=== PATIENT | female | born 1950 | race Caucasian/White ===

== ENCOUNTER → 2019-01-04 | Outpatient (CLI) | payer BC, MEDICARE ==
[2019-01-04 13:29] VITALS: BP 128/83; PULSE 61; RESP 16; TEMP 98.2; BMI 24.2
--- NOTE | 2019-01-04 14:35 | P.HPOB ---
History of Present Illness H&P Date: 01/04/19 Chief Complaint: The patient is here for her routine gynecologic exam. This is a 68-year-old with an LMP of 1978. She is status post vaginal hysterectomy with BSO for benign reasons. The patient is here to establish with this office. She states she has been on in ERT patch for many years. Recently she has experienced some breast soreness with slight engorgement. She denies leakage from the breasts. She thinks she started having this breast soreness around the time she changed to a generic form of the Vivelle dot patch. She is otherwise without gynecologic complaints. She has been experiencing less energy and feels tired. She states she does not have a primary care physician at this time. Review of Systems She believes she has gained about 10 pounds over the past 2 months. She denies respiratory, cardiac and G.I. problems. She denies maltreatment or problems with falling. : she denies any significant problems with urinary leakage. Past Medical History Past Medical History: Hyperlipidemia Additional Past Medical History / Comment(s): She was born with one kidney. 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 Hysterectomy was for endometriosis and abnormal bleeding. History of Any Multi-Drug Resistant Organisms: None Reported Past Surgical History: Appendectomy, Hysterectomy, Orthopedic Surgery, Tonsillectomy Additional Past Surgical History / Comment(s): Vaginal hysterectomy with BSO in 1978. Shoulder, knee, and wrist surgeries. Colonoscopy 2014(4th, next after 5 yrs) Past Psychological History: No Psychological Hx Reported Smoking Status: Never smoker Past Alcohol Use History: Occasional (3 per month) Past Drug Use History: None Reported Additional History: She has been since December 2018 and this is her second marriage. She frequently plays soccer. - Past Family History Father Family Medical History: Myocardial Infarction ([place]) Mother Additional Family Medical History / Comment(s): Trauma related . Medications and Allergies Home Medications Medication Instructions Recorded Confirmed Type Estradiol [Vivelle-Dot 0.1 MG] 1 patch TRANSDERM Q84H 01/04/19 01/04/19 History Allergies Allergy/AdvReac Type Severity Reaction Status Date / Time No Known Allergies Allergy Unverified 01/04/19 13:29 Exam Vital Signs Temp Pulse Resp BP Pulse Ox 01/04/19 13:16 98.2 F 61 16 128/83 96 Intake and Output 01/03/19 01/04/19 01/04/19 22:59 06:59 14:59 Other: Weight 54.431 kg Height 4 feet 11 inches, weight 120 pounds, BMI 24.2. This is a well-developed well-nourished white female who is alert and oriented times 3 in no acute distress. HEENT: Within normal limits. NECK: Supple without mass or thyromegaly. CHEST AND LUNGS: Clear to auscultation. HEART: Regular rate and rhythm. BREASTS: Are without mass or discharge. AXILLARY EXAM: Negative for adenopathy. BACK: Negative for CVA tenderness. ABDOMEN: Soft, nontender, without palpable masses. PELVIC EXAM: External genitalia appears normal with mild atrophy. Vagina appears normal mild atrophy. There is no evidence of prolapse. Bimanual examination is negative for mass or tenderness. RECTAL EXAM: Rectovaginal exam is negative for mass or tenderness and is negative for occult blood. EXTREMITIES: Nontender. IMPRESSION: 1. 68-year-old menopausal female status post vaginal hysterectomy with BSO for benign reasons with normal gynecologic exam. 2. Long-term use of ERT in the form of estrogen patches. PLAN: 1. Pap smears have been discontinued. 2. Self breast awareness was discussed with the patient. 3. The patient had an abnormal mammogram which required bilateral diagnostic mammogram on 05/03/2018. This was done in [place]. 6 month bilateral diagnostic mammogram was recommended. The order slip was given to the patient for this. 4. Osteoporosis prevention was discussed. I have stressed the importance of adequate calcium, vitamin D and regular exercise. Recommended amounts of calcium and vitamin D were also discussed. She states she had a normal bone density test done in April 2018 in [place]. I have her requested that she try to get me a copy of this report. 5. We have had a long discussion regarding ERT. We have discussed the possible risk of blood clots and stroke. I have recommended that she gradually wean off of ERT. I will reduce her estrogen patch dose to Vivelle-Dot 0.0375 changed twice weekly. I recommended she wean off of this completely, if possible. She states she will do this. The prescription will be sent to [facility] electronically. 6. She does get flu shots in the fall and did receive one recently. 7. The patient was advised to return in 1-2 years for her well woman examination.
== END | disposition home or self-care (01) ==
LOC: WWCWWP 12:48
PROVIDERS: ATTEND Obstetrics & Gynecology
DX: Z53.9 Procedure and treatment not carried out, unspecified reason (principal)

== ENCOUNTER → 2019-01-05 | Outpatient (CLI) | payer MEDICARE ==
[2019-01-05 07:27] LABS: HGB 13.1 gm/dL (11.4-16.0); MCH 30.9 pg (25.0-35.0); MCV 96.7 fL (80.0-100.0); Mean Platelet Volume 6.5; Platelet Count 320 k/uL (150-450); RBC 4.24 m/uL (3.80-5.40); RDW 12.5 % (11.5-15.5); WBC 4.3 k/uL (3.8-10.6)
[2019-01-05 11:54] LABS: African American GFR (CKD) 66.1 (60.0-200.0); Albumin 3.9 g/dL (3.80-4.90); Albumin/Globulin Ratio 2.17 (1.60-3.17); Anion Gap 8.1 mmol/L (4.00-12.00); Calcium 9.4 mg/dL (8.7-10.3); Carbon Dioxide 26.9 mmol/L (21.6-31.8); Chol/HDL Ratio 2.77; Globulin 1.8 g/dL (1.6-3.3); LDL Cholesterol,Calculated 124.2 mg/dL (0.0-131.0); Potassium 4.6 mmol/L (3.5-5.5); Total Bilirubin 0.5 mg/dL (0.2-1.2); Total Protein 5.7 g/dL (6.2-8.2); VLDL Calculation 13.8 mg/dL (5.00-40.00)
== END ==
LOC: LABWHC1 06:36
PROVIDERS: ATTEND Obstetrics & Gynecology
DX: Z00.00 Encounter for general adult medical examination without abnormal findings (principal); E78.5 Hyperlipidemia, unspecified; R53.83 Other fatigue
CPT/HCPCS: 36415; 80053; 80061; 84443; 85027

== ENCOUNTER → 2019-01-26 | Outpatient (CLI) | payer MEDICARE ==
--- NOTE | 2019-01-26 11:09 | MM ---
Reason for exam: follow-up at short interval from prior study. Last mammogram was performed 10 months ago. History: Patient is postmenopausal and history of other cancer. Benign stereotactic core biopsy of the right breast, 2004. Took estrogen beginning at age 27. Physical Findings: Nurse did not find any significant physical abnormalities on exam. MG 3D Diag Mammo W/Cad TAMMY Bilateral CC and MLO view(s) were taken. LM, CC with magnification, and LM with magnification view(s) were taken of the left breast. Prior study comparison: March 25, 2018, mammogram. February 22, 2014, mammogram. The breast tissue is extremely dense which could obscure a lesion on mammography. Finding: There are intermediate concern, suspicious fine pleomorphic, grouped/clustered calcifications in the upper outer quadrant, middle position of the left breast 5cm from the nipple. Positive on magnification views. New finding since March 25, 2018 and February 22, 2014. These results were verbally communicated with the patient and result sheet given to the patient on 01/26/19. ASSESSMENT: Suspicious, BI-RAD 4 RECOMMENDATION: Stereotactic core biopsy of the left breast. (upper outer quadrant calcifications) Called Dr. Gross's office with mammographic findings. Patient states she will have biopsy is [place]. PRELIMINARY REPORT CALLED AND FAXED TO DR. GROSS ON 01/26/19.
== END | disposition home or self-care (01) ==
LOC: RADMAMWWP 08:42
PROVIDERS: ATTEND Obstetrics & Gynecology
DX: R92.8 Other abnormal and inconclusive findings on diagnostic imaging of breast (principal)
CPT/HCPCS: 77066; G0279; 77062

== ENCOUNTER → 2021-08-13 | Outpatient (CLI) | payer MEDICARE ==
[2021-08-13 08:00] VITALS: BP 111/79; PULSE 58; RESP 17; TEMP 98.1
--- NOTE | 2021-08-13 08:49 | P.HPOB ---
History of Present Illness H&P Date: 08/13/21 Chief Complaint: The patient is here for her routine gynecologic exam and ma mmogram. This is a 71-year-old with an LMP of 1978. The patient is status post vaginal hysterectomy with BSO for benign reasons. The patient is without gynecologic complaints. She continues to use the ERT patch and she has used this for many years. She states she had tried to wean from it but noticed more hot flashes and resumed the estradiol 0.0375 mg patch twice weekly. She would like to stay on this dose at this time. Review of Systems The patient's weight has been stable over the last year. She denies respiratory, cardiac, or G.I. problems. Past Medical History Past Medical History: Hyperlipidemia Additional Past Medical History / Comment(s): She was born with one kidney. 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 Hysterectomy was for endometriosis and abnormal bleeding. History of Any Multi-Drug Resistant Organisms: None Reported Past Surgical History: Appendectomy, Hysterectomy, Orthopedic Surgery, Tonsillectomy Additional Past Surgical History / Comment(s): Vaginal hysterectomy with BSO in 1978. Shoulder, knee, and wrist surgeries. Colonoscopy 2020(next after 5 yrs) Past Psychological History: No Psychological Hx Reported Smoking Status: Never smoker Past Alcohol Use History: Occasional (1 per month) Past Drug Use History: None Reported Additional History: She has been since 2018 and this is her second marriage. She spends much of the winter in [place]. She enjoys playing soccer. - Past Family History Father Family Medical History: Myocardial Infarction ([place]) Mother Additional Family Medical History / Comment(s): Trauma related . Medications and Allergies Home Medications Medication Instructions Recorded Confirmed Type estradioL [Vivelle-Dot 0.0375 MG] 1 patch TRANSDERM DIRECTED #24 01/04/19 08/13/21 Rx patch Allergies Allergy/AdvReac Type Severity Reaction Status Date / Time No Known Allergies Allergy Unverified 08/13/21 07:51 Exam Vital Signs Temp Pulse Resp BP Pulse Ox 08/13/21 07:53 98.1 F 58 L 17 111/79 98 Intake and Output 08/12/21 08/13/21 08/13/21 22:59 06:59 14:59 Other: Weight 54.431 kg Height 4 feet 10 inches, weight 120 pounds, BMI 25.1. This is a well-developed well-nourished white female who is alert and oriented times 3 in no acute distress. HEENT: Within normal limits. NECK: Supple without mass or thyromegaly. CHEST AND LUNGS: Clear to auscultation. HEART: Regular rate and rhythm. BREASTS: Are without mass or discharge. AXILLARY EXAM: Negative for adenopathy. BACK: Negative for CVA tenderness. ABDOMEN: Soft, nontender, without palpable masses. PELVIC EXAM: External genitalia appears normal with mild atrophy. Vagina appears normal with mild atrophy. There is no evidence of prolapse. Bimanual examination is negative for mass or tenderness. RECTAL EXAM: Rectovaginal exam is negative for mass or tenderness and is ne gative for occult blood. EXTREMITIES: Nontender. IMPRESSION: 1. 71-year-old menopausal female who is status post vaginal hysterectomy with BSO, with normal gynecologic exam. 2. Doing well on ERT. PLAN: 1. Pap smears have been discontinued. 2. Self breast awareness was discussed with the patient. We have also discussed symptoms associated with inflammatory breast cancer. 3. Screening mammogram will be done today. She has brought a disc with her most recent mammogram images with her and this was uploaded into our system. 4. We have had a long discussion regarding ERT. We have discussed the increased risk for stroke and blood clots. She understands we must weigh the possible risks against the benefits. She states she has noticed a difference when she has tried to wean or when she has been late for changing her patches. She notices more hot flashes and she would like to continue on the ERT as prescribed. Estradiol patch 0.0375 mg per day changed twice weekly will be continued. The electronic prescription will be sent to [facility]. 5. She has completed her Covid vaccination series and has received 2 boosters. 6.Osteoporosis prevention was discussed. I have stressed the importance of adequate calcium, vitamin D and regular exercise. Recommended amounts of calcium and vitamin D were also discussed. She states she had a normal bone density test in 2019 and this was done in [place]. She will repeat this after 5 years. 7. The patient was advised to return in 1-2 years for her well woman examination.
--- NOTE | 2021-08-15 08:41 | MM ---
Reason for exam: screening (asymptomatic). Last mammogram was performed 2 years and 7 months ago. History: Patient is postmenopausal and history of other cancer. Benign excisional biopsy of the left breast, 2019. Benign stereotactic core biopsy of the right breast, 2003. Taking estrogen beginning at age 27. Physical Findings: A clinical breast exam by your physician is recommended on an annual basis and results should be correlated with mammographic findings. MG 3D Screening Mammo W/Cad Bilateral CC and MLO view(s) were taken. Prior study comparison: January 26, 2019, bilateral MG 3d diag mammo w/cad TAMMY. March 25, 2018, mammogram. The breast tissue is extremely dense which could obscure a lesion on mammography. Previous mammotome biopsy in the left breast. No significant changes when compared with prior studies. ASSESSMENT: Benign, BI-RAD 2 RECOMMENDATION: Routine screening mammogram of both breasts in 1 year.
== END ==
LOC: WWCWWP 07:41
PROVIDERS: ATTEND Obstetrics & Gynecology
DX: Z01.419 Encounter for gynecological examination (general) (routine) without abnormal findings (principal); Z12.31 Encounter for screening mammogram for malignant neoplasm of breast; R92.8 Other abnormal and inconclusive findings on diagnostic imaging of breast; E78.5 Hyperlipidemia, unspecified; Z90.710 Acquired absence of both cervix and uterus; Z90.722 Acquired absence of ovaries, bilateral
CPT/HCPCS: 77063; 77067

== ENCOUNTER → 2022-10-13 | Outpatient (CLI) | payer MEDICARE ==
--- NOTE | 2022-10-14 19:42 | MM ---
Reason for Exam: Screening (asymptomatic). Last mammogram was performed 1 year(s) and 2 month(s) ago. Patient History: Menarche at age 11. First Full-Term at age 22. Left ovary removed at age 27. Right ovary removed at age 27. Hysterectomy at age 27. Postmenopausal. Currently using Estrogen, starting at age 27. 2003, Benign Stereotactic Core Biopsy on the right side. 2019, Benign Excisional Biopsy on the left side. Risk Values: Nona 5 year model risk: 2.4%. NCI Lifetime model risk: 5.5%. Prior Study Comparison: 03/25/2018 Screening Mammogram, Unknown. 01/26/2019 Bilateral Diagnostic Mammogram, [facility]. 08/13/2021 Bilateral Screening Mammogram, [facility]. Tissue Density: The breast tissue is heterogeneously dense. This may lower the sensitivity of mammography. Findings: Analyzed By CAD. Microclip left breast from prior biopsy. Coarse microcalcification lateral right breast remains unchanged. There is no suspicious group of microcalcifications or new suspicious mass in either breast. Overall Assessment: Benign, BI-RAD 2 Management: Screening Mammogram of both breasts in 1 year. . Patient should continue monthly self-breast exams. A clinical breast exam by your physician is recommended on an annual basis. This exam should not preclude additional follow-up of suspicious palpable abnormalities. Note on Nona scores and lifetime risk: 1. A Nona score greater than 3% is considered moderate risk. If this is the case, consider specialist referral to assess eligibility for a risk reducing agent. 2. If overall lifetime risk for the development of breast cancer is 20% or higher, the patient may qualify for future screening with alternating mammogram and breast MRI. Electronically signed and approved by: Danny Vaz M.D. Radiologist
== END | disposition home or self-care (01) ==
LOC: RADMAMWWP 14:22
PROVIDERS: ATTEND Family Medicine
DX: Z12.31 Encounter for screening mammogram for malignant neoplasm of breast (principal); Z78.0 Asymptomatic menopausal state
CPT/HCPCS: 77063; 77067

== ENCOUNTER → 2022-11-05 | Outpatient (CLI) | payer MEDICARE ==
[2022-11-05 11:57] LABS: Basophils # (A) 0.05 X 10*3/uL (0.00-0.10); Basophils % (A) 0.7 %; Eosinophils # (A) 0.11 X 10*3/uL (0.04-0.35); Eosinophils % (A) 1.6 %; HCT 43.7 % (37.2-46.3); HGB 14.4 d/dL (12.0-15.0); Lymphocytes # (A) 2.25 X 10*3/uL (0.90-5.00); Lymphocytes % (A) 32.9 %; MCH 31.3 pg (27.0-32.0); Mean Platelet Volume 8.9 FL (9.5-12.2); Monocytes # (A) 0.53 X 10*3/uL (0.20-1.00); Monocytes % (A) 7.8 %; NRBC Per 100 WBC 0 X 10*3/uL (0.00-0.01); Neutrophils # (A) 3.87 X 10*3/uL (1.80-7.70); Neutrophils % (A) 56.7 %; Platelet Count 325 X 10*3/uL (140-440); RDW 12.3 % (11.5-14.5); WBC 6.83 X 10*3/uL (4.50-10.00)
[2022-11-05 12:23] LABS: ALT 18 U/L (8-44); AST 18 U/L (13-35); Albumin 4.4 d/dL (3.8-4.9); Alkaline Phosphatase 70 U/L (41-126); BUN/Creat Ratio 18.18 Ratio (12.00-20.00); Calcium 10.1 mg/dL (8.7-10.3); Carbon Dioxide 27.7 mmol/L (21.6-31.8); Chloride 105 mmol/L (96-109); Chol/HDL Ratio 2.79 Ratio; Glucose 86 mg/dL (70-110); LDL Cholesterol,Calculated 134.2 mg/dL (0.0-131.0); Magnesium 2.1 mg/dL (1.5-2.4); Potassium 4.8 mmol/L (3.5-5.5); Sodium 141 mmol/L (135-145); Total Bilirubin 0.3 mg/dL (0.3-1.2); Total Protein 6.4 d/dL (6.2-8.2); VLDL Calculation 11.52 mg/dL (5.00-40.00)
== END | disposition home or self-care (01) ==
LOC: LABWHC1 07:09
PROVIDERS: ATTEND Family Medicine
DX: Z13.220 Encounter for screening for lipoid disorders (principal); Z13.29 Encounter for screening for other suspected endocrine disorder; R53.82 Chronic fatigue, unspecified
CPT/HCPCS: 36415; 80053; 80061; 83735; 84443; 85025

== ENCOUNTER → 2023-09-16 | Outpatient (CLI) | payer MEDICARE ==
[2023-09-16 17:24] LABS: INR 0.9 (<1.2); Partial Thromboplastin Time 22.8 sec (22.0-30.0); Prothrombin Time 10.2 sec (10.0-12.5)
[2023-09-17 02:54] LABS: HCT 42.8 % (37.2-46.3); HGB 13.5 g/dL (12.0-15.0); MCH 30.5 pg (27.0-32.0); MCHC 31.5 g/dL (32.0-37.0); MCV 96.6 FL (80.0-97.0); Mean Platelet Volume 9.7 FL (9.5-12.2); NRBC Per 100 WBC 0 X 10*3/uL (0.00-0.01); Platelet Count 348 X 10*3/uL (140-440); RBC 4.43 X 10*6/uL (4.10-5.20); RDW 12.4 % (11.5-14.5); WBC 6.29 X 10*3/uL (4.50-10.00)
[2023-09-17 03:16] LABS: ALT 16 U/L (8-44); AST 21 U/L (13-35); Albumin 4.7 g/dL (3.8-4.9); Albumin/Globulin Ratio 2.35 Ratio (1.60-3.17); Alkaline Phosphatase 82 U/L (41-126); BUN/Creat Ratio 18.55 Ratio (12.00-20.00); Blood Urea Nitrogen 20.4 mg/dL (9.0-27.0); Calcium 9.8 mg/dL (8.7-10.3); Carbon Dioxide 25.3 mmol/L (21.6-31.8); Chloride 104 mmol/L (96-109); Glucose 88 mg/dL (70-110); Potassium 4.2 mmol/L (3.5-5.5); Sodium 140 mmol/L (135-145); Total Bilirubin 0.2 mg/dL (0.3-1.2); Total Protein 6.7 g/dL (6.2-8.2)
--- NOTE | 2023-09-17 07:29 | XR ---
EXAMINATION TYPE: XR chest 2V DATE OF EXAM: 09/16/2023 COMPARISON: NONE TECHNIQUE: PA and lateral views submitted. HISTORY: Preop FINDINGS: The lungs are clear and there is no pneumothorax, pleural effusion, or focal pneumonia. Heart size normal and no overt failure. Osseous structures demonstrate hypertrophic and degenerative changes of the spine. AC joint arthropathy. Hyperinflation suggests COPD. IMPRESSION: 1. No acute process.
== END | disposition home or self-care (01) ==
LOC: LABWHC1 15:12
PROVIDERS: ATTEND Specialist
DX: M50.322 Other cervical disc degeneration at C5-C6 level (principal); M50.323 Other cervical disc degeneration at C6-C7 level; J44.1 Chronic obstructive pulmonary disease with (acute) exacerbation
CPT/HCPCS: 36415; 71046; 80053; 85027; 85610; 85730

== ENCOUNTER → 2023-11-12 | Outpatient (CLI) | payer MEDICARE | END | disposition home or self-care (01) | LOC: LABPRL 10:15 | PROVIDERS: ATTEND Family Medicine | DX: Z13.220 Encounter for screening for lipoid disorders | CPT/HCPCS: 80061; 82306; 84443 ==